=== PATIENT | female | born 1995 | race Caucasian/White ===

== ENCOUNTER 2017-05-30 20:53 | Emergency (ER) | payer MEDICAID ==
--- NOTE | 2017-05-31 00:01 | ER Document Report ---
HPI - HPI Patient complains to provider of: IUD concern Onset: Just prior to arrival Onset/Duration: Sudden Quality of pain: Achy Pain Level: 2 Context: Patient states she was having intercourse this evening and afterwards went to feel her IUD strings and thought that they felt longer than normal. Patient states that she has some soreness but is uncertain if this is related to her IUD or having intercourse recently. Patient denies any vaginal bleeding or discharge. Patient would like to make sure that her IUD is in the proper location. Associated Symptoms: Other - Concern about IUD. denies: Fever Exacerbated by: Denies Relieved by: Denies Similar symptoms previously: No Recently seen / treated by doctor: No - ROS ROS below otherwise negative: Yes Systems Reviewed and Negative: Yes All other systems reviewed and negative - DERM Skin Color: Normal Skin Problems: None Past Medical History - General Information source: Patient - Social History Smoking Status: Never Smoker Frequency of alcohol use: Occasional Drug Abuse: None Family History: Reviewed & Not Pertinent Psychiatric Medical History: Reports: Hx Anxiety Surgical Hx: Negative Vertical Provider Document - CONSTITUTIONAL Agree With Documented VS: Yes Exam Limitations: No Limitations General Appearance: WD/WN, No Apparent Distress - HEENT HEENT: Atraumatic, Normocephalic - NECK Neck: Normal Inspection - RESPIRATORY Respiratory: Breath Sounds Normal, No Respiratory Distress O2 Sat by Pulse Oximetry: 100 - CARDIOVASCULAR Cardiovascular: Regular Rate, Regular Rhythm - GI/ABDOMEN Gastrointestinal: Abdomen Soft, Abdomen Non-Tender, No Organomegaly - BACK Back: Normal Inspection. negative: CVA Tenderness-Right, CVA Tenderness-Left - MUSCULOSKELETAL/EXTREMETIES Musculoskeletal/Extremeties: MAEW - NEURO Level of Consciousness: Awake, Alert, Appropriate Motor/Sensory: No Motor Deficit - DERM Integumentary: Warm, Dry Course - Re-evaluation Re-evalutation: 05/31/17 00:00 Offered patient pelvic examination at this time, patient defers 05/31/17 01:55 Reviewed results of patient's ultrasound with her. Patient encouraged to follow -up with her sample washer when she returns home. Patient denies any concerns about STD and declines any pelvic examination. - Vital Signs Vital signs: Temp Pulse Resp BP Pulse Ox 98.9 F 57 L 121/58 L 100 05/30/17 21:38 05/30/17 21:38 05/30/17 21:38 05/30/17 21:38 - Diagnostic Test Radiology reviewed: Reports reviewed Discharge - Discharge Clinical Impression: concern about IUD position Condition: Stable Disposition: HOME, SELF-CARE Additional Instructions: Return immediately for any new or worsening symptoms Followup with your primary care provider, call tomorrow to make a followup appointment Follow-up with her sample washer when you return home Referrals: [facility] [Provider Group] - Follow up as needed
--- NOTE | 2017-05-31 01:42 | RADIOLOGY REPORT (SQ) ---
EXAM DESCRIPTION: U/S NON OB PEL TV W/DOPPLER CLINICAL HISTORY: 22 years Female, concern about IUD malposition COMPARISON: None. TECHNIQUE: Complete pelvic ultrasound with transvaginal imaging. FINDINGS: The uterus measures 8.5 x 4.1 x 5.7 cm. Endometrial thickness of 0.4 cm. Cervical length of 3.0 cm. No myometrial abnormalities. The IUD is in the superior portion of the uterus. No ultrasound evidence of breach of the myometrial wall. Possible small amount of free pelvic fluid. The right ovary measures 2.7 x 2.3 x 2.2 cm. The left ovary measures 2.6 x 2.3 x 2.1 cm. Limited color spectral Doppler images demonstrate flow within the ovaries bilaterally. IMPRESSION: 1. IUD visualized in the superior portion of the uterus.
[2017-05-31 02:03] VITALS: BP 100/60
== END 2017-05-31 02:08 | disposition home or self-care (01) ==
LOC: ER 20:53
DX: Z30.431 Encounter for routine checking of intrauterine contraceptive device (principal)
CPT/HCPCS: 76830; 93976; 99283

== ENCOUNTER 2017-08-06 11:12 | Emergency (ER) | payer MEDICAID ==
[2017-08-06 13:34] LABS: BACTERIA (WET MOUNT) 3+ BACTERIA SEEN; EPITHELIALS (WET MOUNT) 3+ EPITHELIALS SEEN; T.VAGINALIS (WET MOUNT) NO TRICHOMONAS SEEN; WBCS (WET MOUNT) NO WBCS SEEN; YEAST (WET MOUNT) NO YEAST SEEN
--- NOTE | 2017-08-06 14:08 | ER Document Report ---
ED GI/ - General Chief Complaint: Vaginal Itching Stated Complaint: VAGINAL PROBLEMS Time Seen by Provider: 08/06/17 11:40 Mode of Arrival: Ambulatory Information source: Patient Notes: Patient is a 22-year-old female who presents to the ER today for approximately 1 week of thick white discharge from the vagina and some itching, foul odor and 1 day of swelling to the right labia. Patient states that she has a history of getting bacterial vaginosis as well as yeast infections a lot. Patient recently was treated for chlamydia with antibiotics approximately 1 month ago, even though she states her test came back negative. She denies being concerned for any STDs because she has not been sexually active. TRAVEL OUTSIDE OF THE [place] IN LAST 30 DAYS: No - Related Data Allergies/Adverse Reactions: divalproex sodium [From Depakote] Allergy (Verified 05/30/17 21:31) Past Medical History - General Information source: Patient - Social History Smoking Status: Never Smoker Family History: Reviewed & Not Pertinent Patient has suicidal ideation: No Patient has homicidal ideation: No Renal/ Medical History: Denies: Hx Peritoneal Dialysis Psychiatric Medical History: Reports: Hx Anxiety, Hx Bipolar Disorder Review of Systems - Review of Systems Constitutional: No symptoms reported EENT: No symptoms reported Cardiovascular: No symptoms reported Respiratory: No symptoms reported Gastrointestinal: No symptoms reported Genitourinary: No symptoms reported Female Genitourinary: See HPI Musculoskeletal: No symptoms reported Skin: No symptoms reported Hematologic/Lymphatic: No symptoms reported Neurological/Psychological: No symptoms reported Physical Exam - Vital signs Vitals: Temp Pulse Resp BP Pulse Ox 98.3 F 84 16 107/66 100 08/06/17 11:21 08/06/17 11:21 08/06/17 11:21 08/06/17 11:21 08/06/17 11:21 - Notes Notes: PHYSICAL EXAMINATION: GENERAL: Well-appearing and in no acute distress. HEAD: Atraumatic, normocephalic. EYES: Pupils equal round and reactive to light, extraocular movements intact, sclera anicteric, conjunctiva are normal. NECK: Normal range of motion, supple without lymphadenopathy LUNGS: CTAB and equal. No wheezes rales or rhonchi. HEART: Regular rate and rhythm without murmurs ABDOMEN: Soft, no tenderness. No guarding, no rebound pelvic: White discharge, patient would not tolerate speculum exam, no rash BACK: no vertebral tenderness, normal ROM GI/: no CVA tenderness EXTREMITIES: Normal range of motion, no pitting edema. No cyanosis. NEUROLOGICAL: Cranial nerves grossly intact. Normal sensory/motor exams. PSYCH: Normal mood, normal affect. SKIN: Warm, Dry, normal turgor, no rashes or lesions noted Course - Re-evaluation Re-evalutation: 08/06/17 18:40 3+ bacteria on wet mount, no yeast, patient not concerned and does not want to be tested for gonorrhea or chlamydia as she states she has not been sexually active. Will treat patient with Flagyl. No swelling to the labia appreciated on exam today. - Vital Signs Vital signs: Temp Pulse Resp BP Pulse Ox 98.9 F 67 16 102/53 L 100 08/06/17 14:43 08/06/17 14:43 08/06/17 11:21 08/06/17 14:43 08/06/17 14:43 Discharge - Discharge Clinical Impression: Bacterial vaginitis Condition: Stable Disposition: HOME, SELF-CARE Additional Instructions: Return immediately for any new or worsening symptoms. Follow up with primary care provider, call tomorrow to make followup appointment. Prescriptions: Metronidazole [Flagyl 500 mg Tablet] 500 mg PO BID #14 tablet
[2017-08-06 14:44] VITALS: BP 102/53
== END 2017-08-06 14:57 | disposition home or self-care (01) ==
LOC: ER 11:12
DX: N76.0 Acute vaginitis (principal); B96.89 Other specified bacterial agents as the cause of diseases classified elsewhere
CPT/HCPCS: 87210; 99283

== ENCOUNTER 2017-08-29 18:35 | Emergency (ER) | payer MEDICAID ==
[2017-08-29] MEDS ORDERED: ONDANSETRON 4 MG TAB.RAPDIS PO ONE (18:50)
--- NOTE | 2017-08-29 18:52 | ER Document Report ---
ED Medical Screen (RME) - General Chief Complaint: Flank Pain Stated Complaint: NAUSEA/FEVER Time Seen by Provider: 08/29/17 18:44 Notes: RAPID MEDICAL EVALUATION DISCLOSURE I have seen this patient as part of a Rapid Medical Evaluation and, if applicable, placed any initially appropriate orders. The patient will be seen and fully evaluated, including a full history and physical exam, by a provider ( in Main ED or Fast Track) when a room becomes available. 22-year-old female here with complaints of dysuria bilateral low back pain nausea fatigue lightheadedness low-grade fevers ongoing for several weeks now. She has a history of kidney infections and thought that she might be having another kidney infection so she has been taking Azo [id number] with some improvement in the dysuria however the back pain persists. No bloody urine. EXAM No abdominal TTP TRAVEL OUTSIDE OF THE [place] IN LAST 30 DAYS: No - Related Data Allergies/Adverse Reactions: divalproex sodium [From Depakote] Allergy (Verified 08/29/17 18:35) Past Medical History - Social History Chew tobacco use (# tins/day): No Frequency of alcohol use: Occasional Drug Abuse: None Renal/ Medical History: Denies: Hx Peritoneal Dialysis Psychiatric Medical History: Reports: Hx Anxiety, Hx Bipolar Disorder Physical Exam - Vital signs Vitals: Temp Pulse Resp BP Pulse Ox 98.1 F 59 L 18 102/56 L 100 08/29/17 18:39 08/29/17 18:39 08/29/17 18:39 08/29/17 18:39 08/29/17 18:39 Course - Vital Signs Vital signs: Temp Pulse Resp BP Pulse Ox 98.1 F 59 L 18 102/56 L 100 08/29/17 18:39 08/29/17 18:39 08/29/17 18:39 08/29/17 18:39 08/29/17 18:39
[2017-08-29 19:18] LABS: ABSOLUTE EOSINOPHILS # (AUTO) 0.1 10^3/uL (0.0-0.6); ABSOLUTE LYMPHOCYTES (AUTO) 2.5 10^3/uL (0.5-4.7); ABSOLUTE MONOCYTES (AUTO) 0.5 10^3/uL (0.1-1.4); ABSOLUTE NEUT (AUTO) 2.4 10^3/uL (1.7-8.2); BASOPHILS % (AUTO) 0.5 % (0-2); HEMATOCRIT 38.8 % (36.0-47.0); HEMOGLOBIN 13.4 g/dL (12.0-15.5); LYMPHOCYTES % (AUTO) 45.8 % (13-45); MEAN CORPUSCULAR HGB CONC 34.5 g/dL (32.0-36.0); MEAN CORPUSCULAR VOLUME 87 fl (80-97); MONOCYTES % (AUTO) 9.3 % (3-13); PLATELET COUNT 200 10^3/uL (150-450); RED BLOOD COUNT 4.46 10^6/uL (3.72-5.28); SEGMENTED NEUTROPHILS % (AUTO) 43.4 % (42-78); TOTAL CELLS COUNTED % (AUTO) 100 %; WHITE BLOOD COUNT 5.6 10^3/uL (4.0-10.5)
[2017-08-29 19:32] LABS: APPEARANCE,URINE CLOUDY; BILIRUBIN,URINE NEGATIVE (NEGATIVE); COLOR,URINE YELLOW; GLUCOSE, URINE NEGATIVE (NEGATIVE); KETONES,URINE NEGATIVE (NEGATIVE); LEUKOCYTE ESTERASE,URINE LARGE (NEGATIVE); NITRITE,URINE NEGATIVE (NEGATIVE); PROTEIN,URINE 30 mg/dL (NEGATIVE); URINE SPECIFIC GRAVITY 1.027; UROBILINOGEN,URINE NEGATIVE mg/dL (<2.0)
[2017-08-29 19:45] LABS: ALANINE AMINOTRANSFERASE 26 U/L (9-52); ALBUMIN 4.7 g/dL (3.5-5.0); ALKALINE PHOSPHATASE 43 U/L (38-126); ANION GAP 13 (5-19); ASPARTATE AMINO TRANSFERASE 22 U/L (14-36); BILIRUBIN,DIRECT 0.3 mg/dL (0.0-0.4); BILIRUBIN,TOTAL 0.4 mg/dL (0.2-1.3); BLOOD UREA NITROGEN 12 mg/dL (7-20); CALCIUM 9.6 mg/dL (8.4-10.2); CARBON DIOXIDE 23 mmol/L (22-30); CHLORIDE 109 mmol/L (98-107); GLUCOSE 87 mg/dL (75-110); LIPASE 189.9 U/L (23-300); PHOSPHORUS 3.8 mg/dL (2.5-4.5); SODIUM 145.3 mmol/L (137-145); TOTAL PROTEIN 7.7 g/dL (6.3-8.2)
[2017-08-29] MEDS ORDERED: CEPHALEXIN 500 MG CAPSULE PO ONE (19:48)
[2017-08-29] MEDS ORDERED: ONDANSETRON ODT 4 MG TAB (6 TAB/ER DISP) PO PRN (19:51)
--- NOTE | 2017-08-29 19:52 | ER Document Report ---
ED General - General Chief Complaint: Flank Pain Stated Complaint: NAUSEA/FEVER Time Seen by Provider: 08/29/17 18:44 Notes: Patient is a 22 year old female with a medical history of anxiety but no chronic medical problems who presents with multiple complaints. She states for the past 3 weeks she has had fatigue, nausea, vomiting, back pain, headache, lower abdominal pain, and dysuria. She states that the symptoms have been relatively unchanged since onset. Nothing is new or different symptoms that prompted her to come to the emergency department today. She has not seen her general doctor regarding today's concerns. She denies recorded fever at home but states that she has had subjective fever. She states she has had similar symptoms in the past with prior urinary tract infections. She does describe her lower back pain as being a throbbing, aching, constant pain. Nothing improves or worsens this discomfort. TRAVEL OUTSIDE OF THE [place] IN LAST 30 DAYS: No - Related Data Allergies/Adverse Reactions: divalproex sodium [From Depakote] Allergy (Verified 08/29/17 18:35) Past Medical History - General Information source: Patient - Social History Smoking Status: Never Smoker Chew tobacco use (# tins/day): No Frequency of alcohol use: Occasional Drug Abuse: None Lives with: Spouse/Significant other Family History: Reviewed & Not Pertinent Patient has suicidal ideation: No Patient has homicidal ideation: No Renal/ Medical History: Denies: Hx Peritoneal Dialysis Psychiatric Medical History: Reports: Hx Anxiety, Hx Bipolar Disorder Review of Systems - Review of Systems Notes: Constitutional: Positive for subjective fever HENT: Negative for sore throat. Eyes: Negative for visual changes. Cardiovascular: Negative for chest pain. Respiratory: Negative for shortness of breath. Gastrointestinal: Negative for abdominal pain, positive for nausea and vomiting Genitourinary: Positive for dysuria. Musculoskeletal: Positive for back pain. Skin: Negative for rash. Neurological: Negative for headaches, weakness or numbness. 10 point ROS negative except as marked above and in HPI. Physical Exam - Vital signs Vitals: Temp Pulse Resp BP Pulse Ox 98.1 F 59 L 18 102/56 L 100 08/29/17 18:39 08/29/17 18:39 08/29/17 18:39 08/29/17 18:39 08/29/17 18:39 Interpretation: Bradycardic Notes: PHYSICAL EXAMINATION: GENERAL: Well-appearing, well-nourished and in no acute distress. HEAD: Atraumatic, normocephalic. EYES: Pupils equal round and reactive to light, extraocular movements intact, sclera anicteric, conjunctiva are normal. ENT: nares patent, oropharynx clear without exudates. Moist mucous membranes. NECK: Normal range of motion, supple without lymphadenopathy LUNGS: Breath sounds clear to auscultation bilaterally and equal. No wheezes rales or rhonchi. HEART: Regular rate and rhythm without murmurs ABDOMEN: Soft, nontender, normoactive bowel sounds. No guarding, no rebound. No masses appreciated. EXTREMITIES: Normal range of motion, no pitting or edema. No cyanosis. NEUROLOGICAL: No focal neurological deficits. Moves all extremities spontaneously and on command. PSYCH: Normal mood, normal affect. SKIN: Warm, Dry, normal turgor, no rashes or lesions noted. Course - Re-evaluation Re-evalutation: 08/29/17 19:50 Patient presents with multiple vague complaints that did not appear to be concerning for any acute life-threatening pathology. Vitals are within normal limits at triage and at time of discharge. Physical examination is unremarkable. Patient has tolerated oral intake without difficulty. Patient was not noted to be in distress at any point during their ER visit. Urinalysis does note findings consistent with a urinary tract infection although is grossly contaminated. Urine culture has been sent and the patient has empirically been started on a 5 day course of cephalexin given that her symptoms are consistent with a urinary tract infection. At this time, based on the reassuring evaluation, I do not suspect an acute ME, pulmonary embolus, aortic dissection, acute intra-abdominal pathology, stroke, or sepsis. Will discharge with return precautions and follow-up recommendations. Verbal discharge instructions given a the bedside and opportunity for questions given. Medication warnings reviewed. Patient is in agreement with this plan and has verbalized understanding of return precautions and the need for primary care follow-up in the next 24-72 hours. - Vital Signs Vital signs: Temp Pulse Resp BP Pulse Ox 98.1 F 59 L 18 102/56 L 100 08/29/17 18:39 08/29/17 18:39 08/29/17 18:39 08/29/17 18:39 08/29/17 18:39 - Laboratory Result Diagrams: 08/29/17 18:55 08/29/17 18:55 Laboratory results interpreted by me: 08/29/17 08/29/17 08/29/17 18:55 18:55 18:55 Lymphocytes % 45.8 H Sodium 145.3 H Chloride 109 H Urine Protein 30 H Ur Leukocyte Esterase LARGE H Discharge - Discharge Clinical Impression: Urinary tract infection Qualifiers: Urinary tract infection type: site unspecified Hematuria presence: without hematuria Qualified Code(s): N39.0 - Urinary tract infection, site not specified Fatigue Qualifiers: Fatigue type: unspecified Qualified Code(s): R53.83 - Other fatigue Nausea and vomiting Qualifiers: Vomiting type: unspecified Vomiting Intractability: non-intractable Qualified Code(s): R11.2 - Nausea with vomiting, unspecified Condition: Good Disposition: HOME, SELF-CARE Additional Instructions: Your urine shows findings consistent with a urinary tract infection. Please take all the antibiotics as directed even if your symptoms have improved. You may use the Zofran with which she had been sent home as needed for nausea or vomiting. Please follow-up with your primary care physician in the next 24-48 hours. Return to emergency room if you develop fever >101F, persistent vomiting , become lethargic, have severe pain in your sides, or any other symptoms that are concerning to you. Prescriptions: Cephalexin Monohydrate [Keflex 500 mg Capsule] 500 mg PO Q6H 5 Days capsule
[2017-08-29 20:21] VITALS: BP 99/80
== END 2017-08-29 20:20 | disposition home or self-care (01) ==
LOC: ER 18:35
DX: N39.0 Urinary tract infection, site not specified (principal); R53.83 Other fatigue; R11.2 Nausea with vomiting, unspecified; R51 Headache; M54.5 Low back pain; R30.0 Dysuria; Z88.8 Allergy status to other drugs, medicaments and biological substances
CPT/HCPCS: 99284; 36415; 87086; 83690; 83735; 84100; 84443; 85025; 81025; 80053; 81001; S0119

== ENCOUNTER 2017-09-14 20:39 | Emergency (ER) | payer MEDICAID ==
[2017-09-14 20:50] VITALS: BP 110/63
--- NOTE | 2017-09-14 21:33 | ER Document Report ---
HPI - HPI Onset: Last week Onset/Duration: Persistent Pain Level: 3 Context: 22-year-old female is taking Septra prescribed by another provider for dysuria and urethral irritation. She states the Septra is not helping. She is on her menses at this time. History of frequent urinary tract infections, nonhormonal IUD. No pelvic or abdominal pain. No nausea vomiting. No flank pain. No fever or chills. She denies vaginal irritation. When she was seen by the other provider on 610 her gonorrhea chlamydia and wet prep were negative. Associated Symptoms: None Exacerbated by: Other - Urination Relieved by: Denies Similar symptoms previously: No Recently seen / treated by doctor: No - ROS ROS below otherwise negative: Yes Systems Reviewed and Negative: Yes All other systems reviewed and negative - CONSTITUTIONAL Constitutional: DENIES: Fever, Chills - EENT EENT: DENIES: Sore Throat, Ear Pain, Eye problems - NEURO Neurology: DENIES: Headache, Weakness, Vision blurred, Dizzinesss / Vertigo - CARDIOVASCULAR Cardiovascular: DENIES: Chest pain - RESPIRATORY Respiratory: DENIES: Trouble Breathing, Coughing - GASTROINTESTINAL Gastrointestinal: DENIES: Abdominal Pain, Black / Bloody Stools - URINARY Urinary: REPORTS: Dysuria, Urgency, Frequency - REPRODUCTIVE Reproductive: DENIES: : - MUSCULOSKELETAL Musculoskeletal: DENIES: Extremity pain Past Medical History - General Information source: Patient - Social History Smoking Status: Unknown if Ever Smoked Frequency of alcohol use: None Drug Abuse: None Lives with: Spouse/Significant other Family History: Reviewed & Not Pertinent Patient has suicidal ideation: No Patient has homicidal ideation: No Renal/ Medical History: Denies: Hx Peritoneal Dialysis Psychiatric Medical History: Reports: Hx Anxiety, Hx Bipolar Disorder Vertical Provider Document - CONSTITUTIONAL Agree With Documented VS: Yes Exam Limitations: No Limitations General Appearance: No Apparent Distress - INFECTION CONTROL TRAVEL OUTSIDE OF THE [place] IN LAST 30 DAYS: No - HEENT HEENT: Normocephalic - NECK Neck: Supple - RESPIRATORY Respiratory: Breath Sounds Normal, No Respiratory Distress - CARDIOVASCULAR Cardiovascular: Regular Rate, Regular Rhythm - GI/ABDOMEN Gastrointestinal: Abdomen Soft, Abdomen Non-Tender, No Organomegaly, Normal Bowel Sounds - BACK Back: Normal Inspection. negative: CVA Tenderness-Right, CVA Tenderness-Left - MUSCULOSKELETAL/EXTREMETIES Musculoskeletal/Extremeties: MAEW - NEURO Level of Consciousness: Awake, Alert - DERM Integumentary: Warm, Dry Course - Re-evaluation Re-evalutation: 09/14/17 21:58 Urinalysis does not look like a urinary tract infection but I will try treating with the nitrofurantoin with a urine culture pending and also give her a prescription for Pyridium to help with irritation or burning. - Vital Signs Vital signs: Temp Pulse Resp BP Pulse Ox 98.7 F 56 L 16 110/63 99 09/14/17 20:48 09/14/17 20:48 09/14/17 20:48 09/14/17 20:48 09/14/17 20:48 Discharge - Discharge Clinical Impression: Dysuria Condition: Good Disposition: HOME, SELF-CARE Instructions: Urinary Tract Infection ([facility]), Urinary Anesthetic Agent ([facility]), Nitrofurantoin ([facility]) Additional Instructions: Drink plenty of fluids Pyridium will turn your P orange but it takes away the dysuria or painful urination Urine culture is pending Nitrofurantoin for several days Stop the Septra. Return to the emergency room for abdominal pain, pelvic pain, vomiting, flank pain, fever
[2017-09-14] MEDS ORDERED: PHENAZOPYRIDINE HCL 200 MG TABLET PO ONE (21:36)
[2017-09-14] MEDS ORDERED: NITROFURANTOIN MONOHYD/M-CRYST 100 MG CAPSULE PO ONE (21:40)
[2017-09-14 21:41] LABS: APPEARANCE,URINE SLIGHTLY-CLOUDY; BILIRUBIN,URINE NEGATIVE (NEGATIVE); COLOR,URINE YELLOW; GLUCOSE, URINE NEGATIVE (NEGATIVE); KETONES,URINE NEGATIVE (NEGATIVE); LEUKOCYTE ESTERASE,URINE NEGATIVE (NEGATIVE); NITRITE,URINE NEGATIVE (NEGATIVE); PROTEIN,URINE NEGATIVE (NEGATIVE); URINE SPECIFIC GRAVITY 1.017; UROBILINOGEN,URINE NEGATIVE mg/dL (<2.0)
== END 2017-09-14 22:17 | disposition home or self-care (01) ==
LOC: ER 20:39
DX: R30.0 Dysuria (principal)
CPT/HCPCS: 99283; 87086; 81001; J3490 ×2; J8499

== ENCOUNTER 2017-09-16 18:50 | Emergency (ER) | payer MEDICAID ==
[2017-09-16 19:01] VITALS: BP 106/57
--- NOTE | 2017-09-16 20:48 | ER Document Report ---
ED GI/ <EARL WRIGHT - Last Filed: 09/16/17 21:20> - General Mode of Arrival: Ambulatory Information source: Patient TRAVEL OUTSIDE OF THE [place] IN LAST 30 DAYS: No <RIVER CHARLES - Last Filed: 09/16/17 21:33> - General Chief Complaint: Urinary Problem Stated Complaint: HEADACHE/PAINFUL URINATION Time Seen by Provider: 09/16/17 20:20 Notes: Patient is a 22 year old female with anxiety, bipolar disorder, and depression with a history of frequent UTIs and urinary problems presents to the emergency department complaining of multiple symptoms including urinary burning and frequency, vaginal itching and a foul vaginal odor. Patient states she had a confirmed UTI 3 weeks ago in [place] and was prescribed 10 day antibiotic of Cipro. Patient states the Cipro did not relieve her symptoms so she went back and received a dose of Bactrim that she finished on 09/14/2017. Patient states the round of Bactrim did not alleviate her symptoms either therefore she came to this emergency department and discharged on 09/14/2017 with Macrobid and Pyridium. Patient states her urinary frequency and burning is still present and as of yesterday, she began to notice vaginal itching and a foul odor. She states her urinary burning is primarily located around the urethra. Patient also states on 09/13/2017 she was tested for gonorrhea, chlamydia, BV and trichomonas which all turned out to be negative. Patient has a ParaGard IUD. She also mentions she used a bath bomb for the first time 4 weeks ago. At bedside patient does not mention the symptoms of headache, shortness of breath or chest pain which she mentions in triage. Patient only discusses her urinary and vaginal problems. (RIVER CHARLES) - Related Data Allergies/Adverse Reactions: divalproex sodium [From Depakote] Allergy (Verified 09/16/17 18:51) Past Medical History - General Information source: Patient - Social History Smoking Status: Never Smoker Cigarette use (# per day): No Chew tobacco use (# tins/day): No Frequency of alcohol use: Occasional Family History: Reviewed & Not Pertinent Patient has suicidal ideation: No Patient has homicidal ideation: No Psychiatric Medical History: Reports: Hx Anxiety, Hx Bipolar Disorder, Hx Depression <RIVER CHARLES - Last Filed: 09/16/17 21:33> Review of Systems - Review of Systems Constitutional: No symptoms reported EENT: No symptoms reported Cardiovascular: No symptoms reported Respiratory: No symptoms reported Gastrointestinal: No symptoms reported Genitourinary: See HPI, Burning, Frequency Female Genitourinary: See HPI, Vaginal odor Musculoskeletal: No symptoms reported Skin: No symptoms reported Hematologic/Lymphatic: No symptoms reported Neurological/Psychological: No symptoms reported -: Yes All other systems reviewed and negative <ARACELI,TAMDESTINEE - Last Filed: 09/16/17 21:33> Physical Exam - Genitourinary External exam: Normal - There is no discernible inflammation around the urethral meatus region, but she does report some burning discomfort to palpating the area. Speculum exam: Normal - Cervical mucus is clear, there is no discharge. Strings from the IUD are seen. Vaginal bleeding: None Bimanuel exam: Cervical motion tender - There is uterine tenderness on palpation. The adnexal regions are not tender. The bladder is not tender, but she did feel some pressure sensation. <EARL WRIGHT - Last Filed: 09/16/17 21:20> - General General appearance: Appears well, Alert In distress: None - HEENT Head: Normocephalic, Atraumatic Eyes: Normal Conjunctiva: Normal Extraocular movements intact: Yes Pupils: PERRL Neck: Normal - Respiratory Respiratory status: No respiratory distress - Cardiovascular Rhythm: Regular - Abdominal Inspection: Normal Distension: No distension Bowel sounds: Normal Tenderness: Nontender Organomegaly: No organomegaly - Back Back: Normal - Extremities General upper extremity: Normal ROM General lower extremity: Normal ROM - Neurological Neuro grossly intact: Yes Cognition: Normal Orientation: AAOx4 Ana Coma Scale Eye Opening: Spontaneous Ana Coma Scale Verbal: Oriented [place] Coma Scale Motor: Obeys Commands Ana Coma Scale Total: 15 Speech: Normal - Psychological Associated symptoms: Normal affect, Normal mood - Skin Skin Temperature: Warm Skin Moisture: Dry Skin Color: Normal <RIVER CHARLES - Last Filed: 09/16/17 21:33> - Vital signs Vitals: Temp Pulse Resp BP Pulse Ox 98.7 F 89 20 106/57 L 98 09/16/17 19:00 09/16/17 19:00 09/16/17 19:00 09/16/17 19:00 09/16/17 19:00 Course <EARL WRIGHT - Last Filed: 09/16/17 21:20> <RIVER CHARLES - Last Filed: 09/16/17 21:33> - Re-evaluation Re-evalutation: 09/16/17 21:25 The patient has history is quite confusing, particularly since her urinalysis 2 days ago was completely normal, and today it is nitrite positive with 19 WBCs. Due to the history, and findings, I will treat her pelvic pain with doxycycline. She states she is never been on that medication before that she knows of. I will give her 1 dose of Diflucan 2 help prevent her from developing a yeast infection, as there was no visual evidence of yeast at this time. I will recommend she try some [id number] hydrocortisone ointment on the burning irritating urethral region and see if that helps over the next few days. She will be advised to wear loose fitting clothing, not to wear any pants, and does leave the area open to air dry as much as possible. She is also recommended to not engage in sexual intercourse at all for the next week to allow the area to heal. (EARL WRIGHT) - Vital Signs Vital signs: Temp Pulse Resp BP Pulse Ox 98.7 F 89 20 106/57 L 98 09/16/17 19:00 09/16/17 19:00 09/16/17 19:00 09/16/17 19:00 09/16/17 19:00 - Laboratory Laboratory results interpreted by me: 09/16/17 20:25 Urine Nitrite POSITIVE H Urine Urobilinogen 4.0 H Ur Leukocyte Esterase TRACE H Discharge <EARL WRIGHT - Last Filed: 09/16/17 21:20> <RIVER CHARLES - Last Filed: 09/16/17 21:33> - Discharge Clinical Impression: Irritation of urethral meatus, Pelvic pain Urinary tract infection Qualifiers: Urinary tract infection type: site unspecified Hematuria presence: without hematuria Qualified Code(s): N39.0 - Urinary tract infection, site not specified Condition: Stable Disposition: HOME, SELF-CARE Additional Instructions: The urinalysis today does suggest a bladder infection, while it was entirely normal 2 days ago. It will be cultured to see if anything does grow. You will be put on doxycycline due to the amount of discomfort you had when your uterus was palpated during the exam. You were given 1 dose of the doxycycline tonight and you can fill the prescription and start taking it tomorrow. You were given a dose of Diflucan which is the treatment for vaginal yeast infections. I do not see any evidence of yeast infection at this time, however your symptoms suggest it, and and this may prevent development of a yeast infection due to antibiotics. Go by [facility] or any other pharmacy this evening on your way home and get a tube of [id number]-gcectti hydrocortisone 1% ointment and applied to the irritated urethral area 3 times a day for the next few days and see if that helps her symptoms. Do not engage in sexual intercourse or any rubbing activity involving genital area for the next week to allow the irritated tissues to heal. Follow-up with [facility] if your symptoms do not improve. RETURN TO THE EMERGENCY ROOM IF ANY NEW OR WORSENING SYMPTOMS. Prescriptions: Doxycycline Hyclate 100 mg PO BID #14 tablet Referrals: [facility] [Provider Group] - Follow up as needed Scribe Attestation: 09/16/17 21:22 I personally performed the services described in the documentation, reviewed and edited the documentation which was dictated to the scribe in my presence, and it accurately records my words and actions. (EARL WRIGHT) Scribe Documentation - Scribe Written by Ernestina:: Ernestina Jerez, 09/16/2017 21:06 acting as scribe for :: Ra <RIVER CHARLES - Last Filed: 09/16/17 21:33>
[2017-09-16 20:56] LABS: APPEARANCE,URINE CLEAR; BILIRUBIN,URINE NEGATIVE (NEGATIVE); COLOR,URINE AMBER; GLUCOSE, URINE NEGATIVE (NEGATIVE); KETONES,URINE NEGATIVE (NEGATIVE); LEUKOCYTE ESTERASE,URINE TRACE (NEGATIVE); NITRITE,URINE POSITIVE (NEGATIVE); PROTEIN,URINE NEGATIVE (NEGATIVE); URINE SPECIFIC GRAVITY 1.016
[2017-09-16] MEDS ORDERED: DOXYCYCLINE HYCLATE 100 MG TABLET PO ONE (21:21)
[2017-09-16] MEDS ORDERED: FLUCONAZOLE 100 MG TABLET PO ONE (21:21)
== END 2017-09-16 21:40 | disposition home or self-care (01) ==
LOC: ER 18:50
DX: N39.0 Urinary tract infection, site not specified (principal); R10.2 Pelvic and perineal pain; N36.9 Urethral disorder, unspecified; R30.9 Painful micturition, unspecified; R35.0 Frequency of micturition
CPT/HCPCS: 99283; 87086; 81025; 81001; J3490 ×2